=== PATIENT | female | born 1955 | race Caucasian/White ===

== ENCOUNTER 2017-12-07 12:03 | Observation (INO) ==
[2017-12-07] MEDS ORDERED: Sod Chloride 0.9% Inj 1,000 ML IV.SIG ONE (12:13)
--- NOTE | 2017-12-07 12:24 | ED ---
HPI General Chief complaint: Weakness Stated complaint: Weakness Time Seen by Provider: 12/07/17 12:04 Source: patient Mode of arrival: EMS Limitations: no limitations History of Present Illness HPI Narrative: The patient is a 62-year-old female who presents to the emergency department via EMS for generalized weakness. The patient states that she developed some generalized weakness 2 weeks ago which is progressive. The patient then developed diarrhea 2 days ago which she describes as loose, watery, brown, without any visible blood. She also complains of some generalized weakness with diffuse body aches. The patient states she fell earlier today on her tailbone, has pain over the sacral coccyx area. The patient does admit to tobacco use and daily alcohol use, last cigarette was just prior to arrival and last use of alcohol was this morning. [facility]. The patient states she lives alone at home. The patient is unsure whether she struck her head when she fell earlier today, denies any significant headache. She denies any neck pain, chest pain, or abdominal pain. Symptoms are moderate and progressive. MD Complaint: generalized weakness Onset (ago): day(s) Duration: progressively worsening Location: generalized Migration: none Severity: moderate Severity scale (1-10): 4 Quality: aching Relieving factors: none Exacerbating factors: none Context: trauma/injury Related Data Home Medications Medication Instructions Recorded Confirmed No Known Home Medications 12/07/17 12/07/17 Allergies Allergy/AdvReac Type Severity Reaction Status Date / Time No Known Allergies Allergy Unverified 12/07/17 12:13 Review of Systems Except as stated in HPI: all other systems reviewed are negative Constitutional Reports fatigue, Denies fever(s), Denies headache(s), Reports poor appetite and Reports weakness ENT Denies headache(s) and Denies neck pain Cardiovascular Denies chest pain and Denies dyspnea Respiratory Denies dyspnea Gastrointestinal Denies abdominal pain, Reports diarrhea, Denies nausea and Denies vomiting Genitourinary Reports urinary incontinence Musculoskeletal Reports back pain and Reports muscle weakness [facility] Medical History Medical History H/O: hysterectomy (Acute) Patient denies medical problems (Acute) Social History Social History Substance History: Active Abuse Second Hand Smoke Exposure: No Smoking Status: Current every day smoker Tobacco Type: Cigarettes How Often Do You Have a Drink Containing Alcohol: 4 or more times a week Recent Travel in [facility] within the Last 8 Weeks: No Recent Out of Country Travel within the Last 8 Weeks: No Exam Narrative Exam Narrative: GENERAL: Awake, alert, pleasant 62-year-old female who appears her stated age and is in no acute respiratory distress. Disheveled appearance cachectic appearance. SKIN: Focused skin assessment warm/dry. HEAD: Atraumatic. Normocephalic. EYES: No injection or drainage. ENT: No nasal bleeding or discharge. Upper dentures in place. Dry mucous membranes. NECK: Trachea midline. No JVD. CARDIOVASCULAR: Regular, tachycardic with a heart rate of 105. RESPIRATORY: No accessory muscle use. Clear to auscultation. Breath sounds equal bilaterally. GASTROINTESTINAL: Abdomen soft, non-tender, nondistended. Hepatic and splenic margins not palpable. MUSCULOSKELETAL: Bilateral lower extremity pitting edema. Back: No tenderness of the thoracic or lumbar vertebrae. Mild tenderness of the sacral coccyx area midline. NEUROLOGICAL: Awake and alert. No obvious cranial nerve deficits. Motor grossly within normal limits. Normal speech. PSYCHIATRIC: Appropriate mood and affect; insight and judgment normal. Course Initial Documented Vital Signs Temperature 98.1 F 12/07/17 12:13 Pulse Rate 106 H 12/07/17 12:13 Respiratory Rate 16 12/07/17 12:13 Blood Pressure 143/85 H 12/07/17 12:13 Pulse Oximetry 94 L 12/07/17 12:13 Last Documented Vital Signs Temperature 98.1 F 12/07/17 12:13 Pulse Rate 106 H 12/07/17 12:13 Respiratory Rate 16 12/07/17 12:13 Blood Pressure 143/85 H 12/07/17 12:13 Pulse Oximetry 94 L 12/07/17 12:13 Medical Decision Making [facility] Narrative Medical decision making narrative: IV was established, labs are drawn and sent, and the patient was placed on cardiac telemetry monitoring and continuous pulse oximetry monitoring. EKG was ordered and interpreted. Chest x-ray was obtained. Pelvis and sacral x-rays were obtained. The patient was administered IV fluids. Chest x-ray reveals a small left pleural effusion. TSH was mildly elevated, therefore, free T4 and free T3 were sent to lab, they were normal. Potassium is mildly low at 3.3, this was replaced orally. The patient's alcohol level was 10. CT the brain reveals chronic changes, no evidence of subdural hemorrhage the patient was covered in stool, was cleaned in the emergency department. The patient is unable to ambulate, normal amylase with a walker, but has had decreased ability to perform activities of daily living including showering and getting to the kitchen, the patient will be admitted, will need PT, OT, and case management consultation. Differential Diagnosis Differential Diagnosis: Differential diagnosis includes hyponatremia, dehydration, acute kidney injury, hypomagnesemia, hypokalemia, subdural hemorrhage, alcohol abuse, rhabdomyolysis, deconditioning. Lab Data Lab results reviewed: Yes I reviewed the patient's lab results. Lab results narrative: TSH was slightly elevated, free T4 and free T3 were negative. Alcohol level was minimally elevated at 10. Result diagrams: 12/07/17 12:30 12/07/17 12:30 Lab Results 12/07/17 12/07/17 12/07/17 Range/Units 12:30 12:30 12:30 WBC 7.7 (4.0-11.0) th/mm3 RBC 3.27 L (4.00-5.30) mil/mm3 Hgb 12.3 (11.6-15.3) gm/dL Hct 36.1 (35.0-46.0) % MCV 110.4 H (80.0-100.0) fL MCH 37.5 H (27.0-34.0) pg MCHC 34.0 (32.0-36.0) % RDW 15.2 (11.6-17.2) % Plt Count 259 (150-450) th/mm3 MPV 9.5 (7.0-11.0) fL Neut % (Auto) 65.8 (16.0-70.0) % Lymph % (Auto) 19.0 (9.0-44.0) % [place] % (Auto) 13.1 H (0.0-8.0) % Eos % (Auto) 1.2 (0.0-4.0) % Baso % (Auto) 0.9 (0.0-2.0) % Neut # (Auto) 5.1 (1.8-7.7) th/mm3 Lymph # (Auto) 1.5 (1.0-4.8) th/mm3 [place] # (Auto) 1.0 H (0.0-0.9) th/mm3 Eos # (Auto) 0.1 (0.0-0.4) th/mm3 Baso # (Auto) 0.1 (0.0-0.2) th/mm3 WBC Differential . Differential Comment Auto diff final Sodium 135 L Cancelled (136-145) meq/L Potassium 3.3 L Cancelled (3.5-5.1) meq/L Chloride 102 Cancelled (98-107) meq/L Carbon Dioxide 20.6 L Cancelled (21.0-32.0) meq/L Anion Gap 12 Cancelled (5-15) meq/L BUN 4 L Cancelled (7-18) mg/dL Creatinine 0.44 L Cancelled (0.50-1.00) mg/dL Estimated GFR Greater than 89 Cancelled (>89) mL/min Random Glucose 90 Cancelled (74-106) mg/dL Calcium 7.5 L Cancelled (8.5-10.1) mg/dL Prot Corrected Calcium Cancelled Magnesium 1.6 (1.5-2.5) mg/dL Total Bilirubin 0.3 Cancelled (0.2-1.0) mg/dL AST 26 Cancelled (15-37) U/L ALT 14 Cancelled (10-53) U/L Alkaline Phosphatase 109 Cancelled (45-117) U/L Total Creatine Kinase 43 (26-192) U/L Troponin I Less than 0.02 L Cancelled (0.02-0.05) ng/mL Total Protein 5.8 L Cancelled (6.4-8.2) g/dL Albumin 2.2 L Cancelled (3.4-5.0) g/dL TSH 5.560 H (0.358-3.740) uIU/mL Free T4 (0.76-1.46) ng/dL Free T3 (2.18-3.98) pg/mL Urine Color (Yellw/Straw) Urine Clarity (Clear) Urine pH (5.0-8.5) Ur Specific [place] (1.002-1.035) Urine Protein (Neg-Trace) mg/dL Urine Glucose (UA) (Negative) mg/dL Urine Ketones (Negative) mg/dL Urine Occult Blood (Negative) Urine Nitrate (Negative) Urine Bilirubin (Negative) Urine Urobilinogen (Less than 2) mg/dL Ur Leukocyte Esterase (Negative) Urine RBC (0-3) /hpf Urine WBC (0-5) /hpf Ur Squamous Epith Cells (0-5) /hpf Micro UA Comment Urine Culture Comments Serum Alcohol 10 H (0-5) mg/dL 12/07/17 12/07/17 12/07/17 Range/Units 12:30 12:30 12:35 WBC (4.0-11.0) th/mm3 RBC (4.00-5.30) mil/mm3 Hgb (11.6-15.3) gm/dL Hct (35.0-46.0) % MCV (80.0-100.0) fL MCH (27.0-34.0) pg MCHC (32.0-36.0) % RDW (11.6-17.2) % Plt Count (150-450) th/mm3 MPV (7.0-11.0) fL Neut % (Auto) (16.0-70.0) % Lymph % (Auto) (9.0-44.0) % [place] % (Auto) (0.0-8.0) % Eos % (Auto) (0.0-4.0) % Baso % (Auto) (0.0-2.0) % Neut # (Auto) (1.8-7.7) th/mm3 Lymph # (Auto) (1.0-4.8) th/mm3 [place] # (Auto) (0.0-0.9) th/mm3 Eos # (Auto) (0.0-0.4) th/mm3 Baso # (Auto) (0.0-0.2) th/mm3 WBC Differential Differential Comment Sodium (136-145) meq/L Potassium (3.5-5.1) meq/L Chloride (98-107) meq/L Carbon Dioxide (21.0-32.0) meq/L Anion Gap (5-15) meq/L BUN (7-18) mg/dL Creatinine (0.50-1.00) mg/dL Estimated GFR (>89) mL/min Random Glucose (74-106) mg/dL Calcium (8.5-10.1) mg/dL Prot Corrected Calcium Magnesium (1.5-2.5) mg/dL Total Bilirubin (0.2-1.0) mg/dL AST (15-37) U/L ALT (10-53) U/L Alkaline Phosphatase (45-117) U/L Total Creatine Kinase (26-192) U/L Troponin I (0.02-0.05) ng/mL Total Protein (6.4-8.2) g/dL Albumin (3.4-5.0) g/dL TSH (0.358-3.740) uIU/mL Free T4 1.11 (0.76-1.46) ng/dL Free T3 2.18 (2.18-3.98) pg/mL Urine Color Yellow (Yellw/Straw) Urine Clarity Hazy H (Clear) Urine pH 6.0 (5.0-8.5) Ur Specific [place] 1.002 (1.002-1.035) Urine Protein Negative (Neg-Trace) mg/dL Urine Glucose (UA) Negative (Negative) mg/dL Urine Ketones Negative (Negative) mg/dL Urine Occult Blood Negative (Negative) Urine Nitrate Negative (Negative) Urine Bilirubin Negative (Negative) Urine Urobilinogen 2.0 H (Less than 2) mg/dL Ur Leukocyte Esterase Small H (Negative) Urine RBC 1 (0-3) /hpf Urine WBC 3 (0-5) /hpf Ur Squamous Epith Cells 1 (0-5) /hpf Micro UA Comment Culture not ind Urine Culture Comments Culture not ind Serum Alcohol Cancelled (0-5) mg/dL Imaging Data Attestation: I personally reviewed and interpreted this imaging study as follows : My impression: Small left pleural effusion. Radiologist's impression: Chest X-Ray 12/07/17 12:13 CONCLUSION: Small left pleural effusion with associated compressive atelectasis and/or consolidation at the left lung base. No fracture is visualized. Head CT 12/07/17 12:13 CONCLUSION: Unremarkable study. Pelvis X-Ray 12/07/17 12:13 CONCLUSION: No acute pelvis abnormality is identified. Sacrum X-Ray 12/07/17 12:13 CONCLUSION: No acute abnormality is identified. ECG Data EKG Prior to Arrival: No Attestation: I personally reviewed and interpreted this ECG as follows: Interpretation: EKG reveals sinus tachycardia with occasional supraventricular premature complex. Q-wave noted in lead V1, V2, V3. Discharge Plan Discharge Disposition Patient Disposition: 30 Still Patient Discharge Condition Condition: Stable Discharge Details Diagnosis: Generalized weakness, Physical deconditioning, Hypokalemia Physicians Team ED Provider: Bryson Vila Primary Care Provider: [facility],Physician 's Rxs /Orders / Referrals /Forms Prescriptions: No Action No Known Home Medications RF: 0 Discharge Interventions Interventions: Vital Signs Last Done: 12/07/17 12:13 Status ED Status: Admitted Observation Patient
[2017-12-07 12:49] LABS: Baso # (Auto) 0.1 th/mm3 (0.0-0.2); Baso % (Auto) 0.9 % (0.0-2.0); Eos # (Auto) 0.1 th/mm3 (0.0-0.4); Eos % (Auto) 1.2 % (0.0-4.0); Hematocrit 36.1 % (35.0-46.0); Hemoglobin 12.3 gm/dL (11.6-15.3); Lymph # (Auto) 1.5 th/mm3 (1.0-4.8); Mean Corpuscular Hemoglobin 37.5 pg (27.0-34.0); Mean Corpuscular Volume 110.4 fL (80.0-100.0); Mean Platelet Volume 9.5 fL (7.0-11.0); Mono % (Auto) 13.1 % (0.0-8.0); Neut # (Auto) 5.1 th/mm3 (1.8-7.7); Neut % (Auto) 65.8 % (16.0-70.0); Platelet Count 259 th/mm3 (150-450); Red Blood Count 3.27 mil/mm3 (4.00-5.30); Red Cell Distribution Width 15.2 % (11.6-17.2); White Blood Count 7.7 th/mm3 (4.0-11.0)
[2017-12-07 12:57] LABS: Bilirubin,Urine Negative (Negative); Clarity,Urine Hazy (Clear); Color,Urine Yellow (Yellw/Straw); Glucose,Urine (UA) Negative (Negative); Leukocyte Esterase,Urine Small (Negative); Nitrite,Urine Negative (Negative); Specific Gravity,Urine 1.002 (1.002-1.035); Squamous Epithelial Cell,Urine 1 /hpf (0-5)
[2017-12-07 13:11] LABS: Alanine Aminotransferase 14 U/L (10-53); Albumin 2.2 g/dL (3.4-5.0); Alkaline Phosphatase 109 U/L (45-117); Anion Gap 12 meq/L (5-15); Aspartate Aminotransferase 26 U/L (15-37); Blood Urea Nitrogen 4 mg/dL (7-18); Calcium 7.5 mg/dL (8.5-10.1); Carbon Dioxide 20.6 meq/L (21.0-32.0); Chloride 102 meq/L (98-107); Glomerular Filtration Rate Greater Than 89 mL/min (>89); Glucose,Random 90 mg/dL (74-106); Magnesium 1.6 mg/dL (1.5-2.5); Potassium 3.3 meq/L (3.5-5.1); Sodium 135 meq/L (136-145); Total Protein 5.8 g/dL (6.4-8.2)
[2017-12-07 13:13] LABS: Alcohol 10 mg/dL (0-5); Creatine Kinase 43 U/L (26-192)
--- NOTE | 2017-12-07 13:21 | XR ---
EXAM DATE: 12/07/2017 1:00 PM EDT AGE/SEX: 62 years / Female INDICATIONS: Trauma. Fall. CLINICAL DATA: This is the patient's initial encounter. Patient reports that signs and symptoms have been present for 2 days and indicates a pain score of 0/10. MEDICAL/SURGICAL HISTORY: None. None. COMPARISON: No prior exams available for comparison. FINDINGS: Rotated AP view of the chest demonstrates a normal-sized cardiac silhouette. EKG lines overlie the pa tient. A small left pleural-parenchymal opacity is present. No pneumothorax is identified. The bones and soft tissues demonstrate no acute abnormality. CONCLUSION: Small left pleural effusion with associated compressive atelectasis and/or consolidation at the left lung base. No fracture is visualized. Electronically signed by: Jose Chiang MD 12/07/2017 1:20 PM EDT
--- NOTE | 2017-12-07 13:22 | XR ---
EXAM DATE: 12/07/2017 1:03 PM EDT AGE/SEX: 62 years / Female INDICATIONS: Trauma. Fall. Pain when walking. CLINICAL DATA: This is the patient's initial encounter. Patient reports that signs and symptoms have been present for 2 days and indicates a pain score of 7/10. MEDICAL/SURGICAL HISTORY: None. None. COMPARISON: [facility] – [place], PELVIS AP 1V, 12/07/2017. . FINDINGS: AP and lateral views of the sacrum demonstrate no fracture. Sacral arches appear intact. Sacroiliac j oints demonstrate no abnormal widening. Visualized surrounding structures demonstrate no acute findin g. There is severe calcification of the common iliac arteries. CONCLUSION: No acute abnormality is identified. Electronically signed by: Jose Chiang MD 12/07/2017 1:21 PM EDT
--- NOTE | 2017-12-07 13:23 | XR ---
EXAM DATE: 12/07/2017 1:04 PM EDT AGE/SEX: 62 years / Female INDICATIONS: Trauma. Fall. Pain on sacrum. CLINICAL DATA: This is the patient's initial encounter. Patient reports that signs and symptoms have been present for 2 days and indicates a pain score of 7/10. MEDICAL/SURGICAL HISTORY: None. None. [place] [facility] [place] [facility]2017. . FINDINGS: Single AP view of the pelvis demonstrates no fracture or dislocation. Sacroiliac joints demonstrate n o abnormality. The femoral necks are not well visualized secondary to rotation of the femur. There is mild joint space narrowing at the hip joints bilaterally. No soft tissue abnormality or radiopaque f oreign body is seen. CONCLUSION: No acute pelvis abnormality is identified. Electronically signed by: Jose Chiang MD 12/07/2017 1:22 PM EDT
[2017-12-07 14:02] LABS: Free T4 (Free Thyroxine) 1.11 ng/dL (0.76-1.46); Triiodothyronine (T3) Free 2.18 pg/mL (2.18-3.98)
--- NOTE | 2017-12-07 14:29 | CT ---
EXAM DATE: 12/07/2017 1:58 PM EDT AGE/SEX: 62 years / Female INDICATIONS: Generalized weakness. CLINICAL DATA: This is the patient's initial encounter. Patient reports that signs and symptoms have been present for 1 day and indicates a pain score of 0/10. MEDICAL/SURGICAL HISTORY: None. None. RADIATION DOSE: 56.35 CTDI (mGy) COMPARISON: No prior exams available for comparison. TECHNIQUE: CT of the head without contrast. Using automated exposure control and adjustment of the mA and/or kV according to patient size, radiation dose was kept as low as reasonably achievable to ob tain optimal diagnostic quality images. DICOM format image data is available electronically for revi ew and comparison. FINDINGS: There is no evidence for intracranial hemorrhage, mass effect, mass lesions, edema, or extra-axial fl uid collections. The visualized bony structures appear intact. The ventricles are normal size for t he patient's age. There are no signs of acute infarction for technique. CONCLUSION: Unremarkable study. Electronically signed by: Pablo Roldan MD 12/07/2017 2:28 PM EDT
--- NOTE | 2017-12-07 17:16 | P.HPFP ---
History of Present Illness Primary Care Physician: [facility] Chief Complaint: worsening weakness History of Present Illness: Patient is a 62-year-old female past medical history of alcohol abuse who presented to the ED due to severe weakness and deconditioning. Patient reports over the past 2 years she has had generalized weakness worse in her right leg and this has progressively worsened to the point that she is not able to take care of herself at home. At baseline she ambulates with a walker however she stated that her lower extremity weakness has progressed to the point that walker is not effective for her to ambulate anymore. Patient lives alone and has neighbors and daughter that come check in on her from time to time. Of note patient has had episodes of falling at home. Denies any syncope, loss of consciousness, chest pain, shortness of breath, palpitations, recent illnesses, fever, chills, nausea/vomiting, numbness tingling of extremities, or dysuria. She also reports that she began having diarrhea today. Denies any recent antibiotic use. Endorses increased urinary frequency. Patient also has noted decrease appetite eating only one meal per day for the past week. - Diagnosis (1) Physical deconditioning (2) Generalized weakness (3) Hypokalemia (4) History of alcohol abuse (5) Nutrition, metabolism, and development symptoms Review of Systems All other systems reviewed negative except as stated in HPI PMFSH - History History Provided By: Patient - Medical History Medical History: Medical History (Last Updated 12/07/17 @ 12:19 by Yarelis Shah) H/O: hysterectomy Patient denies medical problems - Tobacco History Second Hand Smoke Exposure: No Tobacco Use In Past 30 Days: Yes Smoking Status: Current every day smoker Tobacco Type: Cigarettes - Alcohol History How Often Do You Have a Drink Containing Alcohol: 4 or more times a week - Substance Use History Substance History: Active Abuse - Substance Use Type Alcohol Status: Active Route Used: By Mouth Frequency: daily - Travel History Recent Travel in the [place] Within the Last 8 Weeks: No Recent Travel Out of the Country Within the Last 8 Weeks: No - Immunization History Tetanus Immunization: <5 Years Tetanus Immunization Year if Known: 2016 Hx Influenza Vaccine This Season: No Medications and Allergies Active Medications: Active Medications Sodium Chloride (Ns Flush) 2 ml IV.FLUSH PRN PRN PRN Reason: FLUSH AFTER USING IV ACCESS Last Admin: 12/07/17 13:01 Dose: 2 ml Allergies Allergy/AdvReac Type Severity Reaction Status Date / Time No Known Allergies Allergy Unverified 12/07/17 12:13 Home Medications Medication Instructions Recorded Confirmed Type No Known Home Medications 12/07/17 12/07/17 History Exam Vital signs: Vital Signs 12/07/17 12:13 12/07/17 15:01 Temperature 98.1 F Pulse Rate 106 H 97 H Respiratory Rate 16 20 Blood Pressure 143/85 H 120/87 Pulse Oximetry 94 L 95 Intake & Output 12/06/17 12/07/17 12/07/17 18:59 06:59 18:59 Weight 61.235 kg - Constitutional no acute distress, thin, cachectic, chronically ill appearing, cooperative Comments: Patient appears disheveled, with poor hygiene. - Routine HEENT Exam Head: Present: normocephalic Eye: Present: EOMI, PERRL ENT: Present: mucous membranes moist - Routine Neck Exam Present: supple, full ROM. Absent: JVD - Routine Chest/Breast/Axilla Exam Chest wall: Absent: tenderness - Routine Respiratory Exam Present: CTA bilaterally. Absent: accessory muscle use - Routine Cardiovascular Exam Present: RRR, S1, S2. Absent: murmur, gallop, rubs - Routine Abdominal Exam Present: soft, normoactive bowel sounds. Absent: tenderness, distended, rebound , guarding - Routine Extremities Exam Present: full ROM, pulses intact. Absent: cyanosis, tenderness Comments: Patient with 5 out of 5 strength in all extremities, no calf tenderness bilaterally, well perfused. Feet appear soiled, poor hygiene, toenails significantly dirty and long. - Routine Skin Exam Present: intact - Routine Neurological Exam Present: oriented X3, CN II-XII intact, moving all extremities, normal tone. Absent: sensory deficit, motor deficit Results - Labs Result diagrams: 12/07/17 12:30 12/07/17 12:30 Abnormal lab results 12/07/17 12/07/17 12/07/17 Range/Units 12:30 12:30 12:35 RBC 3.27 L (4.00-5.30) mil/mm3 MCV 110.4 H (80.0-100.0) fL MCH 37.5 H (27.0-34.0) pg [place] % (Auto) 13.1 H (0.0-8.0) % [place] # (Auto) 1.0 H (0.0-0.9) th/mm3 Sodium 135 L (136-145) meq/L Potassium 3.3 L (3.5-5.1) meq/L Carbon Dioxide 20.6 L (21.0-32.0) meq/L BUN 4 L (7-18) mg/dL Creatinine 0.44 L (0.50-1.00) mg/dL Calcium 7.5 L (8.5-10.1) mg/dL Troponin I Less than 0.02 L (0.02-0.05) ng/mL Total Protein 5.8 L (6.4-8.2) g/dL Albumin 2.2 L (3.4-5.0) g/dL TSH 5.560 H (0.358-3.740) uIU/mL Urine Clarity Hazy H (Clear) Urine Urobilinogen 2.0 H (Less than 2) mg/dL Ur Leukocyte Esterase Small H (Negative) Serum Alcohol 10 H (0-5) mg/dL Short CBC 12/07/17 Range/Units 12:30 WBC 7.7 (4.0-11.0) th/mm3 Hgb 12.3 (11.6-15.3) gm/dL Hct 36.1 (35.0-46.0) % Plt Count 259 (150-450) th/mm3 BMP 12/07/17 12/07/17 12:30 12:30 Sodium 135 L Cancelled Potassium 3.3 L Cancelled Chloride 102 Cancelled Carbon Dioxide 20.6 L Cancelled BUN 4 L Cancelled Creatinine 0.44 L Cancelled Calcium 7.5 L Cancelled Cardiac Enzymes 12/07/17 12/07/17 Range/Units 12:30 12:30 Total Creatine Kinase 43 (26-192) U/L Troponin I Less than 0.02 L Cancelled (0.02-0.05) ng/mL Liver Function 12/07/17 12/07/17 Range/Units 12:30 12:30 Total Bilirubin 0.3 Cancelled (0.2-1.0) mg/dL AST 26 Cancelled (15-37) U/L ALT 14 Cancelled (10-53) U/L Alkaline Phosphatase 109 Cancelled (45-117) U/L Albumin 2.2 L Cancelled (3.4-5.0) g/dL Urine 12/07/17 Range/Units 12:35 Urine Color Yellow (Yellw/Straw) Urine Clarity Hazy H (Clear) Urine pH 6.0 (5.0-8.5) Ur Specific [place] 1.002 (1.002-1.035) Urine Protein Negative (Neg-Trace) mg/dL Urine Glucose (UA) Negative (Negative) mg/dL - Imaging Impressions Chest X-Ray 12/07/17 12:13 CONCLUSION: Small left pleural effusion with associated compressive atelectasis and/or consolidation at the left lung base. No fracture is visualized. Head CT 12/07/17 12:13 CONCLUSION: Unremarkable study. Pelvis X-Ray 12/07/17 12:13 CONCLUSION: No acute pelvis abnormality is identified. Sacrum X-Ray 12/07/17 12:13 CONCLUSION: No acute abnormality is identified. Caprini VTE Risk Assessment Caprini VTE Risk Assessment: Moderate/High Risk (score >= 2) Caprini Risk Assessment Model: Point Value = 1 Point Value = 2 Point Value = 3 Point Value = 5 Age 41-60 Minor surgery BMI > 25 kg/m2 Swollen legs Varicose veins or History of unexplained or recurrent spontaneous Oral contraceptives or hormone replacement Sepsis (< 1 month) Serious lung disease, including pneumonia (< 1 month) Abnormal pulmonary function Acute myocardial infarction Congestive heart failure (< 1 month) History of inflammatory bowel disease Medical patient at bed rest Age 61-74 Arthroscopic surgery Major open surgery (> 45 min) Laparoscopic surgery (> 45 min) Malignancy Confined to bed (> 72 hours) Immobilizing plaster cast Central venous access Age >= 75 History of VTE Family history of VTE Factor V Leiden Prothrombin [id number] Lupus anticoagulant Anticardiolipin antibodies Elevated serum homocysteine Heparin-induced thrombocytopenia Other congenital or acquired thrombophilia Stroke (< 1 month) Elective arthroplasty Hip, pelvis, or leg fracture Acute spinal cord injury (< 1 month) Prophylaxis Regimen: Total Risk Factor Score Risk Level Prophylaxis Regimen 0-1 Low Early ambulation 2 Moderate Order ONE of the following: *Sequential Compression Device (SCD) *Heparin 5000 units SQ BID 3-4 Higher Order ONE of the following medications: *Heparin 5000 units SQ TID *Enoxaparin/Lovenox 40 mg SQ daily (WT < 150 kg, CrCl > 30 mL/min) *Enoxaparin/Lovenox 30 mg SQ daily (WT < 150 kg, CrCl > 10-29 mL/min) *Enoxaparin/Lovenox 30 mg SQ BID (WT < 150 kg, CrCl > 30 mL/min) AND/OR *Sequential Compression Device (SCD) 5 or more Highest Order ONE of the following medications: *Heparin 5000 units SQ TID (Preferred with Epidurals) *Enoxaparin/Lovenox 40 mg SQ daily (WT < 150 kg, CrCl > 30 mL/min) *Enoxaparin/Lovenox 30 mg SQ daily (WT < 150 kg, CrCl > 10-29 mL/min) *Enoxaparin/Lovenox 30 mg SQ BID (WT < 150 kg, CrCl > 30 mL/min) AND *Sequential Compression Device (SCD) Assessment and Plan - Assessment (1) Physical deconditioning Code(s): R53.81 - Other malaise Status: Acute Plan: Patient with 2 year history of progressive deconditioning. Patient lives alone , with multiple histories of falls and weakness has progressed to inability to care for herself. Vital signs within normal limits No leukocytosis UA with small amount of leukocyte esterase, follow-up urine culture EKG: Sinus tachycardia Head CT: Normal Chest x-ray: Small left pleural effusion with associated comprehensive atelectasis and/or consolidation at left lung base no fractures. Continue to monitor clinically patient is afebrile, no cough, no leukocytosis Plan to initiate antibiotic coverage for pneumonia patient develops fever. Pelvic and sacrum x-ray: No acute pelvis abnormality Consult case management, physical therapy and Occupational Therapy Patient is not safe to discharge home need assistance in performing ADLs Plan to discharge to assisted living facility. Discharge plan was discussed with patient and patient agreed and showed understanding. (2) Generalized weakness Code(s): R53.1 - Weakness Status: Acute Plan: See plan above for her physical this conditioning (3) Hypokalemia Code(s): E87.6 - Hypokalemia Status: Acute Plan: Patient found to have hypokalemia with potassium of 3.3 She received potassium supplement in the ED Continue to monitor (4) History of alcohol abuse Code(s): Z87.898 - Personal history of other specified conditions Status: Acute Plan: Patient with history of alcohol use she states she drinks about 2-3 cups of rum and coke or wine per day. Patient placed on CIWA protocol vitamin supplementation (5) Nutrition, metabolism, and development symptoms Code(s): R63.8 - Other symptoms and signs concerning food and fluid intake Status: Acute Plan: Fluids: 100mls/hr Electrolytes: Replete as needed Nutrition: Regular diet DVT prophylaxis Lovenox
[2017-12-07] MEDS ORDERED: Bisacodyl 10 MG Supp RECTAL PRN (17:32)
[2017-12-07] MEDS ORDERED: Senna/Docusate Sodium 8.6/50 MG Tablet PO PRN (17:32)
[2017-12-07] MEDS ORDERED: Acetaminophen 325 MG Tablet PO PRN (17:32)
[2017-12-07] MEDS ORDERED: LORazepam 1 MG Tablet PO PRN (18:58)
[2017-12-07] MEDS ORDERED: Haloperidol Inj 5 MG/ML Ampul IV.PUSH PRN (18:58)
[2017-12-07] MEDS: Sod Chloride 0.9% Inj 1,000 ML IV.CONT SCH (19:04)
[2017-12-07] MEDS: Enoxaparin Inj 30 MG/0.3 ML Syringe SQ SCH (20:49)
[2017-12-07 22:39] LABS: Folate 3.9 ng/mL (3.1-17.5)
[2017-12-08] MEDS: Sod Chloride 0.9% Inj 1,000 ML IV.CONT SCH ×2 (05:15→14:09)
[2017-12-08] MEDS: Multivitamin/Minerals Therapeutic Tablet PO SCH ×2 (07:54→08:36)
[2017-12-08] MEDS: Folic Acid 1 MG Tablet PO SCH ×2 (07:54→08:36)
[2017-12-08 09:01] LABS: Baso % (Auto) 0.9 % (0.0-2.0); Eos # (Auto) 0.1 th/mm3 (0.0-0.4); Eos % (Auto) 1.8 % (0.0-4.0); Hematocrit 33.4 % (35.0-46.0); Hemoglobin 11.2 gm/dL (11.6-15.3); Lymph # (Auto) 1.3 th/mm3 (1.0-4.8); Lymph % (Auto) 24.2 % (9.0-44.0); Mean Corpuscular HGB Conc 33.6 % (32.0-36.0); Mean Corpuscular Hemoglobin 37.3 pg (27.0-34.0); Mean Corpuscular Volume 111.1 fL (80.0-100.0); Mean Platelet Volume 9.4 fL (7.0-11.0); Mono # (Auto) 0.7 th/mm3 (0.0-0.9); Mono % (Auto) 12.8 % (0.0-8.0); Neut # (Auto) 3.2 th/mm3 (1.8-7.7); Neut % (Auto) 60.3 % (16.0-70.0); Platelet Count 238 th/mm3 (150-450); Red Blood Count 3.01 mil/mm3 (4.00-5.30); Red Cell Distribution Width 15.1 % (11.6-17.2); White Blood Count 5.3 th/mm3 (4.0-11.0)
[2017-12-08 09:28] LABS: Anion Gap 9 meq/L (5-15); Blood Urea Nitrogen 3 mg/dL (7-18); Calcium 7.4 mg/dL (8.5-10.1); Carbon Dioxide 24.1 meq/L (21.0-32.0); Chloride 109 meq/L (98-107); Glomerular Filtration Rate Greater Than 89 mL/min (>89); Glucose,Random 105 mg/dL (74-106); Potassium 3.4 meq/L (3.5-5.1); Sodium 142 meq/L (136-145)
[2017-12-08 09:43] LABS: Total Protein 5.2 g/dL (6.4-8.2)
--- NOTE | 2017-12-08 10:39 | P.HPFP ---
History of Present Illness Primary Care Physician: [facility] Chief Complaint: worsening weakness History of Present Illness: Patient is a 62-year-old female past medical history of alcohol abuse who presented to the ED due to severe weakness and deconditioning. Patient reports over the past 2 years she has had generalized weakness worse in her right leg and this has progressively worsened to the point that she is not able to take care of herself at home. At baseline she ambulates with a walker however she stated that her lower extremity weakness has progressed to the point that walker is not effective for her to ambulate anymore. Patient lives alone and has neighbors and daughter that come check in on her from time to time. Of note patient has had episodes of falling at home. Denies any syncope, loss of consciousness, chest pain, shortness of breath, palpitations, recent illnesses, fever, chills, nausea/vomiting, numbness tingling of extremities, or dysuria. She also reports that she began having diarrhea on the day of admission. Denies any recent antibiotic use. Endorses increased urinary frequency. Patient also has noted decrease appetite eating only one meal per day for the past week. She is stable this morning. she denies any numbness, episodes of fluctuating weakness, eye problems, fevers, etc. Evidently she was covered in urine and feces when she was found in her apartment and the "place was a shambles" with rotting food and cockroaches. She has agreed that she needs help and is willing to have placement instead of going back home alone - Diagnosis (1) Physical deconditioning (2) Hypokalemia (3) History of alcohol abuse (4) Nutrition, metabolism, and development symptoms (5) Generalized weakness Review of Systems see the ROS from her admission yesterday PMF - History History Provided By: Patient - Medical History Medical History: Medical History (Last Reviewed 12/08/17 @ 15:15 by Meredith Higgins) H/O: hysterectomy Patient denies medical problems - Tobacco History Second Hand Smoke Exposure: No Tobacco Use In Past 30 Days: Yes Smoking Status: Current every day smoker Tobacco Type: Cigarettes - Alcohol History How Often Do You Have a Drink Containing Alcohol: 4 or more times a week - Substance Use History Substance History: Active Abuse - Substance Use Type Alcohol Status: Active Route Used: By Mouth Frequency: daily - Travel History Recent Travel in the [facility] Within the Last 8 Weeks: No Recent Travel Out of the Country Within the Last 8 Weeks: No - Immunization History Tetanus Immunization: <5 Years Tetanus Immunization Year if Known: 2017 Hx Influenza Vaccine This Season: No Medications and Allergies Active Medications: Active Medications Acetaminophen (Tylenol) 650 mg PO Q4H PRN PRN Reason: Temp > 100.4 Last Admin: 12/08/17 08:36 Dose: 650 mg Al Hydroxide/Mg Hydroxide (Milk Of Magnesia Liq) 30 ml PO Q12H PRN PRN Reason: Mild Constipation Bisacodyl (Dulcolax Supp) 10 mg RECTAL DAILY PRN PRN Reason: SEVERE CONSITIPATION Enoxaparin Sodium (Lovenox Inj) 30 mg SQ Q24H [facility] Last Admin: 12/07/17 20:49 Dose: 30 mg Flumazenil (Romazecon Inj) 0.2 mg IV.PUSH Q1M PRN PRN Reason: OVERSEDATION Folic Acid (Folic Acid) 1 mg PO DAILY [facility] Stop: 12/12/17 18:59 Last Admin: 12/08/17 08:36 Dose: 1 mg Haloperidol Lactate (Haldol Inj) 1 mg IV.PUSH Q15M PRN PRN Reason: for severe agitation Sodium Chloride (Ns Inj) 1,000 mls @ 100 mls/hr IV.CONT .Q10H [facility] Last Admin: 12/08/17 05:15 Dose: 100 mls/hr Lactulose (Lactulose Liq) 30 ml PO DAILY PRN PRN Reason: SEVERE CONSITIPATION Lorazepam (Ativan) 1 mg PO Q4H PRN PRN Reason: for CIWA 8-10 Lorazepam (Ativan) 2 mg PO Q2H PRN PRN Reason: for CIWA 11-14 Lorazepam (Ativan Inj) 2 mg IV.PUSH Q2H PRN PRN Reason: for CIWA 11-14 Lorazepam (Ativan Inj) 2 mg IV.PUSH Q15M PRN PRN Reason: for CIWA > 20 Lorazepam (Ativan Inj) 1 mg IV.PUSH Q4H PRN PRN Reason: for CIWA 8-10 Lorazepam (Ativan Inj) 2 mg IV.PUSH Q1H PRN PRN Reason: for CIWA 15-20 Multivitamins/Minerals (Theragran-M) 1 tab PO DAILY [facility] Stop: 12/12/17 18:59 Last Admin: 12/08/17 08:36 Dose: 1 tab Ondansetron HCl (Zofran Odt) 4 mg PO Q6H PRN PRN Reason: NAUSEA OR VOMITING Senna/Docusate Sodium (Yuridia-Colace) 1 tab PO BID PRN PRN Reason: CONSTIPATION Sennosides (Senokot) 17.2 mg PO Q12H PRN PRN Reason: Moderate Constipation Sodium Chloride (Ns Flush) 2 ml IV.FLUSH PRN PRN PRN Reason: FLUSH AFTER USING IV ACCESS Last Admin: 12/07/17 13:01 Dose: 2 ml Thiamine HCl (Vitamin B1) 100 mg PO DAILY [facility] Last Admin: 12/08/17 08:36 Dose: 100 mg Vitamin D (Vitamin D3) 5,000 unit PO DAILY [facility] Last Admin: 12/08/17 08:36 Dose: 5,000 unit Allergies Allergy/AdvReac Type Severity Reaction Status Date / Time No Known Allergies Allergy Unverified 12/07/17 12:13 Home Medications Medication Instructions Recorded Confirmed Type No Known Home Medications 12/07/17 12/07/17 History Exam Vital signs: Vital Signs 12/07/17 12:13 12/07/17 15:01 12/07/17 18:31 Temperature 98.1 F 98.0 F Pulse Rate 106 H 97 H 88 Respiratory Rate 16 20 18 Blood Pressure 143/85 H 120/87 124/67 Pulse Oximetry 94 L 95 93 L 12/08/17 00:00 12/08/17 01:21 12/08/17 04:00 Temperature 98.9 F 97.4 F L Pulse Rate 82 81 Respiratory Rate 16 14 16 Blood Pressure 106/64 106/66 Pulse Oximetry 94 L 95 12/08/17 07:58 12/08/17 08:00 12/08/17 09:00 Temperature 97.7 F Pulse Rate 85 80 Respiratory Rate 16 Blood Pressure 126/79 Pulse Oximetry 96 96 Intake & Output 12/07/17 12/08/17 12/08/17 18:59 06:59 18:59 Intake Total 1000 / 1000 1000 / 1000 Balance 1000 / 1000 1000 / 1000 Weight 61.235 kg 61.5 kg Intake: IV 1000 / 1000 1000 / 1000 NS Inj 1,000 ML @ 100 mls/hr IV 1000 / 1000 .CONT .Q10H [facility] Rx#:[id number] - Constitutional no acute distress, cachectic, disheveled - Routine HEENT Exam Head: Present: normocephalic, atraumatic. Absent: cushingoid faces, abrasion, laceration, hematoma Eye: Present: EOMI. Absent: conjunctival icterus, scleral injection, periorbital swelling ENT: Present: mucous membranes dry - Routine Neck Exam Present: supple, trachea midline. Absent: trauma, meningismus - Routine Chest/Breast/Axilla Exam Chest wall: Absent: tenderness - Routine Respiratory Exam Present: CTA bilaterally. Absent: accessory muscle use, patient mechanically ventilated, decreased breath sounds, rales, respiratory distress - Routine Cardiovascular Exam Present: RRR. Absent: bradycardia, tachycardia, irregular rhythm, irregularly irregular - Routine Abdominal Exam Present: soft. Absent: tenderness, distended, rebound, guarding - Routine Extremities Exam Present: full ROM. Absent: cyanosis, clubbing, edema, calf tenderness, extremity cold to touch Results - Labs Result diagrams: 12/08/17 08:36 12/08/17 08:36 Abnormal lab results 12/07/17 12/07/17 12/07/17 Range/Units 12:30 12:30 12:35 RBC 3.27 L (4.00-5.30) mil/mm3 Hgb (11.6-15.3) gm/dL Hct (35.0-46.0) % MCV 110.4 H (80.0-100.0) fL MCH 37.5 H (27.0-34.0) pg [place] % (Auto) 13.1 H (0.0-8.0) % [place] # (Auto) 1.0 H (0.0-0.9) th/mm3 Sodium 135 L (136-145) meq/L Potassium 3.3 L (3.5-5.1) meq/L Chloride (98-107) meq/L Carbon Dioxide 20.6 L (21.0-32.0) meq/L BUN 4 L (7-18) mg/dL Creatinine 0.44 L (0.50-1.00) mg/dL Calcium 7.5 L (8.5-10.1) mg/dL Troponin I Less than 0.02 L (0.02-0.05) ng/mL Total Protein 5.8 L (6.4-8.2) g/dL Albumin 2.2 L (3.4-5.0) g/dL Vitamin D 25-Hydroxy (30-100) ng/mL TSH 5.560 H (0.358-3.740) uIU/mL Urine Clarity Hazy H (Clear) Urine Urobilinogen 2.0 H (Less than 2) mg/dL Ur Leukocyte Esterase Small H (Negative) Serum Alcohol 10 H (0-5) mg/dL 12/07/17 12/08/17 12/08/17 Range/Units 21:26 08:36 08:36 RBC 3.01 L (4.00-5.30) mil/mm3 Hgb 11.2 L (11.6-15.3) gm/dL Hct 33.4 L (35.0-46.0) % MCV 111.1 H (80.0-100.0) fL MCH 37.3 H (27.0-34.0) pg [place] % (Auto) 12.8 H (0.0-8.0) % [place] # (Auto) (0.0-0.9) th/mm3 Sodium (136-145) meq/L Potassium 3.4 L (3.5-5.1) meq/L Chloride 109 H (98-107) meq/L Carbon Dioxide (21.0-32.0) meq/L BUN 3 L (7-18) mg/dL Creatinine 0.44 L (0.50-1.00) mg/dL Calcium 7.4 L* (8.5-10.1) mg/dL Troponin I (0.02-0.05) ng/mL Total Protein 5.2 L D (6.4-8.2) g/dL Albumin (3.4-5.0) g/dL Vitamin D 25-Hydroxy 5.5 L (30-100) ng/mL TSH (0.358-3.740) uIU/mL Urine Clarity (Clear) Urine Urobilinogen (Less than 2) mg/dL Ur Leukocyte Esterase (Negative) Serum Alcohol (0-5) mg/dL Short CBC 12/07/17 12/08/17 Range/Units 12:30 08:36 WBC 7.7 5.3 (4.0-11.0) th/mm3 Hgb 12.3 11.2 L (11.6-15.3) gm/dL Hct 36.1 33.4 L (35.0-46.0) % Plt Count 259 238 (150-450) th/mm3 BMP 12/07/17 12/07/17 12/08/17 12:30 12:30 08:36 Sodium 135 L Cancelled 142 Potassium 3.3 L Cancelled 3.4 L Chloride 102 Cancelled 109 H Carbon Dioxide 20.6 L Cancelled 24.1 BUN 4 L Cancelled 3 L Creatinine 0.44 L Cancelled 0.44 L Calcium 7.5 L Cancelled 7.4 L* Cardiac Enzymes 12/07/17 12/07/17 12/07/17 Range/Units 12:30 12:30 21:26 Total Creatine Kinase 43 48 (26-192) U/L Troponin I Less than 0.02 L Cancelled (0.02-0.05) ng/mL Liver Function 12/07/17 12/07/17 Range/Units 12:30 12:30 Total Bilirubin 0.3 Cancelled (0.2-1.0) mg/dL AST 26 Cancelled (15-37) U/L ALT 14 Cancelled (10-53) U/L Alkaline Phosphatase 109 Cancelled (45-117) U/L Albumin 2.2 L Cancelled (3.4-5.0) g/dL Urine 12/07/17 Range/Units 12:35 Urine Color Yellow (Yellw/Straw) Urine Clarity Hazy H (Clear) Urine pH 6.0 (5.0-8.5) Ur Specific [place] 1.002 (1.002-1.035) Urine Protein Negative (Neg-Trace) mg/dL Urine Glucose (UA) Negative (Negative) mg/dL - Imaging Impressions Chest X-Ray 12/07/17 12:13 CONCLUSION: Small left pleural effusion with associated compressive atelectasis and/or consolidation at the left lung base. No fracture is visualized. Head CT 12/07/17 12:13 CONCLUSION: Unremarkable study. Pelvis X-Ray 12/07/17 12:13 CONCLUSION: No acute pelvis abnormality is identified. Sacrum X-Ray 12/07/17 12:13 CONCLUSION: No acute abnormality is identified. Caprini VTE Risk Assessment Caprini VTE Risk Assessment: Moderate/High Risk (score >= 2) Caprini Risk Assessment Model: Point Value = 1 Point Value = 2 Point Value = 3 Point Value = 5 Age 41-60 Minor surgery BMI > 25 kg/m2 Swollen legs Varicose veins or History of unexplained or recurrent spontaneous Oral contraceptives or hormone replacement Sepsis (< 1 month) Serious lung disease, including pneumonia (< 1 month) Abnormal pulmonary function Acute myocardial infarction Congestive heart failure (< 1 month) History of inflammatory bowel disease Medical patient at bed rest Age 61-74 Arthroscopic surgery Major open surgery (> 45 min) Laparoscopic surgery (> 45 min) Malignancy Confined to bed (> 72 hours) Immobilizing plaster cast Central venous access Age >= 75 History of VTE Family history of VTE Factor V Leiden Prothrombin [id number] Lupus anticoagulant Anticardiolipin antibodies Elevated serum homocysteine Heparin-induced thrombocytopenia Other congenital or acquired thrombophilia Stroke (< 1 month) Elective arthroplasty Hip, pelvis, or leg fracture Acute spinal cord injury (< 1 month) Prophylaxis Regimen: Total Risk Factor Score Risk Level Prophylaxis Regimen 0-1 Low Early ambulation 2 Moderate Order ONE of the following: *Sequential Compression Device (SCD) *Heparin 5000 units SQ BID 3-4 Higher Order ONE of the following medications: *Heparin 5000 units SQ TID *Enoxaparin/Lovenox 40 mg SQ daily (WT < 150 kg, CrCl > 30 mL/min) *Enoxaparin/Lovenox 30 mg SQ daily (WT < 150 kg, CrCl > 10-29 mL/min) *Enoxaparin/Lovenox 30 mg SQ BID (WT < 150 kg, CrCl > 30 mL/min) AND/OR *Sequential Compression Device (SCD) 5 or more Highest Order ONE of the following medications: *Heparin 5000 units SQ TID (Preferred with Epidurals) *Enoxaparin/Lovenox 40 mg SQ daily (WT < 150 kg, CrCl > 30 mL/min) *Enoxaparin/Lovenox 30 mg SQ daily (WT < 150 kg, CrCl > 10-29 mL/min) *Enoxaparin/Lovenox 30 mg SQ BID (WT < 150 kg, CrCl > 30 mL/min) AND *Sequential Compression Device (SCD) Assessment and Plan - Assessment (1) Physical deconditioning Code(s): R53.81 - Other malaise Status: Acute Plan: Patient with 2 year history of progressive deconditioning. Patient lives alone , with multiple histories of falls and weakness has progressed to inability to care for herself. Vital signs within normal limits No leukocytosis UA with small amount of leukocyte esterase, follow-up urine culture EKG: Sinus tachycardia Head CT: Normal Chest x-ray: Small left pleural effusion with associated comprehensive atelectasis and/or consolidation at left lung base no fractures. Continue to monitor clinically patient is afebrile, no cough, no leukocytosis Plan to initiate antibiotic coverage for pneumonia if patient develops fever. Pelvic and sacrum x-ray: No acute pelvis abnormality based on history of losing bowel and bladder function will consider imaging of spine. Consult case management, physical therapy and Occupational Therapy Patient is not safe to discharge home need assistance in performing ADLs Plan to discharge to assisted living facility. Discharge plan was discussed with patient and patient agreed and showed understanding. (2) Hypokalemia Code(s): E87.6 - Hypokalemia Status: Acute Plan: Patient found to have hypokalemia with potassium of 3.3 She received potassium supplement in the ED Continue to monitor (3) History of alcohol abuse Code(s): Z87.898 - Personal history of other specified conditions Status: Acute Plan: Patient with history of alcohol use she states she drinks about 2-3 cups of rum and coke or wine per day. Patient placed on CIWA protocol vitamin supplementation (4) Nutrition, metabolism, and development symptoms Code(s): R63.8 - Other symptoms and signs concerning food and fluid intake Status: Acute Plan: Fluids: 100mls/hr Electrolytes: Replete as needed Nutrition: Regular diet DVT prophylaxis Lovenox (5) Generalized weakness Code(s): R53.1 - Weakness Status: Acute Plan: See plan above for her physical this conditioning H&P: Quality - VTE Deep Vein Thrombosis/Pulmonary Embolism Present on Admission: No
--- NOTE | 2017-12-08 16:23 | ECG ---
Date Performed: 12/07/2017 Time Performed: 12:14:40 PTAGE: 62 years EKG: SINUS TACHYCARDIA WITH OCCASIONAL SUPRAVENTRICULAR PREMATURE COMPLEXES ANTEROSEPTAL MYOCARD IAL INFARCTION ABNORMAL ECG NO PREVIOUS TRACING DOCTOR: Tony Champion Interpretating Date/Time 12/08/2017 16:22:36
[2017-12-08] MEDS: Enoxaparin Inj 30 MG/0.3 ML Syringe SQ SCH (22:23)
[2017-12-09] MEDS: Folic Acid 1 MG Tablet PO SCH (08:30)
[2017-12-09] MEDS: Multivitamin/Minerals Therapeutic Tablet PO SCH (08:30)
[2017-12-09] MEDS: Sod Chloride 0.9% Inj 1,000 ML IV.CONT SCH ×3 (08:31→21:28)
--- NOTE | 2017-12-09 10:27 | P.PNFP ---
Subjective Interval history: Patient was seen at bedside this morning. There were no acute events overnight. It was discussed with the patient her past abuse of alcohol patient reported having a few drinks every night for "many years". At time of interview patient was asked if he would be okay to contact her daughter to get a more complete history. The patient agreed that it was okay to speak with her daughter. I tried calling daughter today but could not get an answer. Patient denies any subjective fevers, chills, shortness of breath, chest pain, nausea, or vomiting. All questions were answered to the patient's satisfaction. <Rolly Tinajero - 12/09/17 16:31> Results - Labs Result diagrams: 12/11/17 09:31 12/11/17 09:31 <Kanchan Lewis - 12/13/17 15:04> Physical Exam Vital signs: Vital Signs 12/12/17 15:07 12/12/17 16:30 Temperature 98.5 F Pulse Rate 101 H Respiratory Rate 18 Blood Pressure 108/72 Pulse Oximetry 95 <Kanchan Lewis - 12/13/17 15:04> Vital Signs 12/08/17 11:53 12/08/17 15:47 12/08/17 20:00 Temperature 97.8 F 97.7 F Pulse Rate 78 79 Respiratory Rate 16 16 Blood Pressure 136/78 139/81 Pulse Oximetry 96 93 L 94 L 12/09/17 00:04 12/09/17 04:17 12/09/17 07:26 Temperature 98.0 F 98.2 F 97.9 F Pulse Rate 91 H 90 96 H Respiratory Rate 18 20 18 Blood Pressure 143/86 H 146/98 H 166/94 H Pulse Oximetry 94 L 97 Intake & Output 12/08/17 12/09/17 12/09/17 18:59 06:59 18:59 Intake Total 1979 1000 / 1000 Balance 1979 1000 / 1000 Intake: IV 1000 / 1000 1000 / 1000 NS Inj 1,000 ML @ 100 mls/hr IV 1000 / 1000 1000 / 1000 .CONT .Q10H [facility] Rx#:[id number] Oral 980 / 980 Other: # Voids 4 # Incontinent Voids 1 <Rolly Tinajero 12/09/17 10:27> - Constitutional no acute distress, thin, disheveled, cooperative <Rolly Tinajero 12/09/17 16: 31> - Routine HEENT Exam Head: Present: normocephalic, atraumatic <Rolly Tinajero 12/09/17 16:31> Eye: Present: EOMI <Rolly Tinajero 12/09/17 16:31> ENT: Present: mucous membranes moist <Rolly Tinajero 12/09/17 16:31> - Routine Respiratory Exam Present: CTA bilaterally. Absent: prolonged expiratory phase, rales, respiratory distress, rhonchi, stridor, wheezes, crackles <Rolly Tinajero 16:31> - Routine Cardiovascular Exam Present: RRR, S1, S2. Absent: murmur <Rolly Tinajero 12/09/17 16:31> - Routine Abdominal Exam Present: soft, normoactive bowel sounds. Absent: tenderness, rebound, guarding <Rolly Tinajero 12/09/17 16:31> - Routine Extremities Exam Present: pulses intact. 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 <Rolly Tinajero 12/09/17 16:31> - Routine Neurological Exam Present: alert, oriented X3, CN II-XII intact, moving all extremities, normal speech. Absent: sensory deficit, motor deficit, facial asymmetry <Rolly Tinajero 12/09/17 16:31> - Detailed Neurological Exam: Coma Scale Eye Opening: Spontaneous <Rolly Tinajero 12/09/17 16:31> Verbal Response: Oriented <Rolly Tinajero 12/09/17 16:31> Motor Response: Obey commands <Rolly Tinajero 12/09/17 16:31> Dipti Coma Scale Total: 15 <Rolly Tinajero 12/09/17 16:31> - Routine Psychiatric Exam Present: normal affect, normal thought process, cooperative, good insight, good judgment. Absent: agitated, paranoid <Rolly Tinajero 12/09/17 16:31> Assessment and Plan - Assessment (1) Physical deconditioning Code(s): R53.81 - Other malaise Status: Acute (2) Elevated blood pressure reading Code(s): R03.0 - Elevated blood-pressure reading, without diagnosis of hypertension Status: Acute (3) History of alcohol abuse Code(s): Z87.898 - Personal history of other specified conditions Status: Acute (4) Generalized weakness Code(s): R53.1 - Weakness Status: Acute (5) Nutrition, metabolism, and development symptoms Code(s): R63.8 - Other symptoms and signs concerning food and fluid intake Status: Acute <Kanchan Lewis - 12/13/17 15:04> (1) Physical deconditioning Code(s): R53.81 - Other malaise Status: Acute Plan: Patient with 2 year history of progressive deconditioning. Patient lives alone , with multiple histories of falls and weakness has progressed to inability to care for herself. Vital signs within normal limits No leukocytosis UA with small amount of leukocyte esterase, follow-up urine culture EKG: Sinus tachycardia Head CT: Normal Chest x-ray: Small left pleural effusion with associated comprehensive atelectasis and/or consolidation at left lung base no fractures. Continue to monitor clinically patient is afebrile, no cough, no leukocytosis Plan to initiate antibiotic coverage for pneumonia if patient develops fever. Pelvic and sacrum x-ray: No acute pelvis abnormality based on history of losing bowel and bladder function and MRI of the lumbar area was ordered that showed mild annular disc bulges at the L2 through 3 and L4 through 5 levels with minimal flattening of the anterior thecal sac and no focal protrusions. Mild degenerative changes involving the lower facet joints. Consult case management, physical therapy and Occupational Therapy Patient is not safe to discharge home need assistance in performing ADLs Plan to discharge to assisted living facility. Discharge plan was discussed with patient and patient agreed and showed understanding. (2) Hypokalemia Code(s): E87.6 - Hypokalemia Status: Acute Plan: Patient found to have hypokalemia with potassium of 3.3 on December 07, now 3.4. She received potassium supplement in the ED Continue to monitor and replete as necessary (3) History of alcohol abuse Code(s): Z87.898 - Personal history of other specified conditions Status: Acute Plan: Patient with history of alcohol use she states she drinks about 2-3 cups of rum and coke or wine per day. CIWA score 0 today. Patient placed on CIWA protocol vitamin supplementation (4) Nutrition, metabolism, and development symptoms Code(s): R63.8 - Other symptoms and signs concerning food and fluid intake Status: Acute Plan: Fluids: 100mls/hr Electrolytes: Replete as needed Nutrition: Regular diet DVT prophylaxis Lovenox (5) Generalized weakness Code(s): R53.1 - Weakness Status: Acute Plan: See plan above for her physical this conditioning <Rolly Tinajero - 12/09/17 16:17> - Attending Attestation The exam, history, and the medical decision-making described in the above note were completed with the assistance of the resident physician. I reviewed and agree with the findings presented. I attest that I had a [id number] encounter with the patient on the same day, and personally performed and documented my assessment and findings in the medical record. she will likely take a long time to gain her strength and energy back <Kanchan Lewis - 12/13/17 15:04>
--- NOTE | 2017-12-09 11:21 | MR ---
EXAM DATE: 12/09/2017 10:47 AM EDT AGE/SEX: 62 years / Female INDICATIONS: Inability to ambulate. CLINICAL DATA: This is the patient's initial encounter. Patient reports that signs and symptoms have been present for 2 days and indicates a pain score of 0/10. MEDICAL/SURGICAL HISTORY: . ETOH abuse Hysterectomy. COMPARISON: No prior exams available for comparison. TECHNIQUE: Multiplanar, multisequence MRI of the lumbar spine was performed without contrast. Patie nt was scanned in a sitting position; neutral, flexion, and extension scans were performed in the sa gittal plane. FINDINGS: The study is degraded by mild motion artifact throughout the study. Vertebra: Homogeneous signal. Normal alignment. Discs: There is mild disc desiccation. The disc spaces are fairly well preserved. Conus: Normal level and configuration. T12-L1: The thecal sac has a normal diameter. No evidence of disc bulge or protrusion. The neural foramina are patent bilaterally. L1-L2: The thecal sac has a normal diameter. No evidence of disc bulge or protrusion. The neural foramina are patent bilaterally. L2-L3: There is a mild annular disc bulge with minimal of flattening the anterior thecal sac and no focal protrusion. The neural foramina are patent bilaterally. L3-L4: There is a mild annular disc bulge with no focal protrusion. There is minimal flattening of the anterior thecal sac. The neural foramina are patent bilaterally. There are mild degenerative [place] ge involving the facet joints. L4-L5: There is a mild annular disc bulge with minimal flattening of the anterior thecal sac and no focal protrusion. The neural foramina are patent. There are mild degenerative changes involving the facets. L5-S1: The thecal sac has a normal diameter. No evidence of disc bulge or protrusion. The neural foramina are patent bilaterally. CONCLUSION: 1. Mild annular disc bulges at the L2-3 through L4-5 levels with minimal flattening of the anterior thecal sac and no focal protrusion. 2. Mild degenerative changes involving the lower facet joints. 3. The study is mildly degraded by diffuse motion artifact. Electronically signed by: Javier Lopez MD 12/09/2017 11:19 AM EDT
[2017-12-09] MEDS: Enoxaparin Inj 40 MG/0.4 ML Syringe SQ SCH (11:55)
--- NOTE | 2017-12-09 15:09 | P.DIET ---
Nutritional Evaluation Type of nutrition evaluation: initial Nutrition screening: [facility] [place] (Malnutrition) Subjective Subjective Comments: 100% po intake for recorded meals in EMR. Recent decreased appetite eating only 1-meal per day for the past week. Objective - Diagnosis Deconditioning: generalized weakness; lower extremity weakness - Objective [place] body weight: 56.8 kg % IBW: 108 Body Weight Used for Calculations: Actual (61.5kg used for assessment here) Energy Needs - Lower Range (kCal/kg): 25 Energy Needs - Upper Range (kCal/kg): 30 Lower Limit kCal/kg (kCals): 1,538 Upper Limit kCal/kg (kCals): 1,845 Lower Limit Protein Factor (Grams per Kg): 1.1 Upper Limit Protein Factor (Grams per Kg): 1.4 Lower Protein Needs (Protein): 68 Upper Protein Needs (Protein): 86 Fluid Factor (ml/kg): 30 Estimated Fluid Needs (ml): 1,845 Dietitian Reviewed in Medical Record: Current diet, Curent medications, Intake & Output, Labs, Medical history Diet Order: Regular Oral Diet Intake Amount: Excellent 90%+ Objective Comments: PMH: Alcohol Abuse Albumin 2.2 Meds Include Folic Acid, Theragran M, Thiamine, Vit D3, Haldol Assessment Assessment: Pt is at nutritional risk r/t diagnosis and alcohol abuse. Pt w/Adequate po intake 50% or greater for meals here. Send Ensure w/meals for additional nutrition(= 250 kcal and 9g Protein per serving). Labs reviewed-noted concern for low albumin, however, albumin is no longer an indicator of nutritional status and is a negative-acute phase reactant relative to the presence of inflammation in the body. Dietitian will follow. Recommendations: 1.Send Ensure w/meals for additional nutrition 2. Dietitian will follow Dietitian to Monitor: Lab values, Supplement acceptance, Intake & Output, Weight change, PO Intake, Medical course
[2017-12-10] MEDS: Multivitamin/Minerals Therapeutic Tablet PO SCH (08:09)
[2017-12-10] MEDS: Folic Acid 1 MG Tablet PO SCH (08:10)
[2017-12-10] MEDS: Enoxaparin Inj 40 MG/0.4 ML Syringe SQ SCH (08:10)
[2017-12-10] MEDS: Sod Chloride 0.9% Inj 1,000 ML IV.CONT SCH ×2 (08:10→18:32)
--- NOTE | 2017-12-10 11:21 | P.PNFP ---
Subjective Interval history: Nursing reports that Ms. Summers had visual hallucinations overnight. Ms. Summers does not remember this on exam today. She has no complaints at this time. She has increased activity and been able to get out of bed. She requests that we call her daughter today. <Elizabeth Rizzo - 12/10/17 11:27> Results - Labs Result diagrams: 12/11/17 09:31 12/11/17 09:31 <Kanchan Lewis - 12/13/17 15:07> - Imaging Impressions Lumbar Spine MRI 12/09/17 00:00 CONCLUSION: 1. Mild annular disc bulges at the L2-3 through L4-5 levels with minimal flattening of the anterior thecal sac and no focal protrusion. 2. Mild degenerative changes involving the lower facet joints. 3. The study is mildly degraded by diffuse motion artifact. <Elizabeth Rizzo - 12/10/17 11:21> Physical Exam Vital signs: Vital Signs 12/12/17 15:07 12/12/17 16:30 Temperature 98.5 F Pulse Rate 101 H Respiratory Rate 18 Blood Pressure 108/72 Pulse Oximetry 95 <Kanchan Lewis - 12/13/17 15:07> Vital Signs 12/09/17 11:24 12/09/17 15:09 12/09/17 19:38 Temperature 97.7 F 97.7 F 98.0 F Pulse Rate 81 98 H 96 H Respiratory Rate 18 18 16 Blood Pressure 160/87 H 146/95 H 125/78 Pulse Oximetry 98 98 97 12/09/17 23:03 12/10/17 03:27 12/10/17 08:00 Temperature 98.7 F 98.4 F 98.6 F Pulse Rate 87 110 H 92 H Respiratory Rate 16 16 16 Blood Pressure 165/93 H 101/74 145/75 H Pulse Oximetry 98 96 94 L Intake & Output 12/09/17 12/10/17 12/10/17 18:59 06:59 18:59 Intake Total 1500 / 1500 1000 / 1000 Output Total 400 / 400 Balance 1500 / 1500 600 / 600 Intake: IV 1000 / 1000 1000 / 1000 NS Inj 1,000 ML @ 100 mls/hr IV 1000 / 1000 1000 / 1000 .CONT .Q10H [facility] Rx#:[id number] Oral 500 / 500 Output: Urine 400 / 400 Other: # Voids 2 # Incontinent Voids 2 <Elizabeth Rizzo - 12/10/17 11:21> Narrative: GENERAL: Sitting up in bed, eating SKIN: Warm and dry. HEAD: Normocephalic. EYES: No injection or drainage. NECK: Supple, trachea midline. No JVD or lymphadenopathy. CARDIOVASCULAR: Regular rate and rhythm without murmurs, gallops, or rubs. RESPIRATORY: Breath sounds equal bilaterally. No accessory muscle use. GASTROINTESTINAL: Abdomen soft, non-tender, nondistended. Normoactive bowel sounds MUSCULOSKELETAL: No cyanosis, or edema. Pedal pulses intact BACK: Nontender without obvious deformity. <Elizabeth Rizzo - 12/10/17 11:21> Assessment and Plan - Assessment (1) Physical deconditioning Code(s): R53.81 - Other malaise Status: Acute (2) Elevated blood pressure reading Code(s): R03.0 - Elevated blood-pressure reading, without diagnosis of hypertension Status: Acute (3) History of alcohol abuse Code(s): Z87.898 - Personal history of other specified conditions Status: Acute (4) Generalized weakness Code(s): R53.1 - Weakness Status: Acute (5) Nutrition, metabolism, and development symptoms Code(s): R63.8 - Other symptoms and signs concerning food and fluid intake Status: Acute <Kanchan Lewis - 12/13/17 15:07> (1) Physical deconditioning Code(s): R53.81 - Other malaise Status: Acute Plan: Patient with 2 year history of progressive deconditioning. Patient lives alone , with multiple histories of falls and weakness has progressed to inability to care for herself. -Consult to case management, physical therapy and Occupational Therapy -Patient strength improving -To follow-up with case management to get [facility] assistance. Patient was in under last name of Karson -Plan to discharge to assisted living facility. Pt to be evaluated by [facility] -[id number] to be signed (2) Elevated blood pressure reading (3) Hypokalemia Code(s): E87.6 - Hypokalemia Status: Acute Plan: Patient found to have hypokalemia with potassium of 3.3 on December 07, now 3.4. She received potassium supplement in the ED Continue to monitor and replete as necessary (4) History of alcohol abuse Code(s): Z87.898 - Personal history of other specified conditions Status: Acute Plan: Patient with history of alcohol use she states she drinks about 2-3 cups of rum and coke or wine per day. Hallucinations last night Patient continue on CIWA protocol vitamin supplementation (5) Nutrition, metabolism, and development symptoms Code(s): R63.8 - Other symptoms and signs concerning food and fluid intake Status: Acute Plan: Fluids: 100mls/hr Electrolytes: Replete as needed Nutrition: Regular diet DVT prophylaxis Lovenox (6) Generalized weakness Code(s): R53.1 - Weakness Status: Acute Plan: See plan above for her physical this conditioning <Elizabeth Rizzo - 12/10/17 16:01> - Attending Attestation The exam, history, and the medical decision-making described in the above note were completed with the assistance of the resident physician. I reviewed and agree with the findings presented. I attest that I had a [id number] encounter with the patient on the same day, and personally performed and documented my assessment and findings in the medical record. she has no hallucinations today. with a very long alcohol history, people can get alcohol related dementia, as well as serious weakness and gait problems <Kanchan Lewis - 12/13/17 15:07>
[2017-12-11] MEDS: Sod Chloride 0.9% Inj 1,000 ML IV.CONT SCH ×3 (04:52→23:05)
[2017-12-11] MEDS: Folic Acid 1 MG Tablet PO SCH (08:01)
[2017-12-11] MEDS: Enoxaparin Inj 40 MG/0.4 ML Syringe SQ SCH (08:01)
[2017-12-11] MEDS: Multivitamin/Minerals Therapeutic Tablet PO SCH (08:01)
[2017-12-11] MEDS ORDERED: Labetalol 100 MG Tablet PO SCH (09:00)
[2017-12-11 10:01] LABS: Hematocrit 36.3 % (35.0-46.0); Hemoglobin 12.3 gm/dL (11.6-15.3); Mean Corpuscular HGB Conc 33.8 % (32.0-36.0); Mean Corpuscular Hemoglobin 37.9 pg (27.0-34.0); Mean Corpuscular Volume 112.1 fL (80.0-100.0); Mean Platelet Volume 8.6 fL (7.0-11.0); Platelet Count 351 th/mm3 (150-450); Red Blood Count 3.24 mil/mm3 (4.00-5.30); Red Cell Distribution Width 15.2 % (11.6-17.2); White Blood Count 7.7 th/mm3 (4.0-11.0)
[2017-12-11 10:35] LABS: Anion Gap 6 meq/L (5-15); Blood Urea Nitrogen 6 mg/dL (7-18); Calcium 8.5 mg/dL (8.5-10.1); Carbon Dioxide 29.4 meq/L (21.0-32.0); Chloride 105 meq/L (98-107); Glomerular Filtration Rate Greater Than 89 mL/min (>89); Glucose,Random 95 mg/dL (74-106); Potassium 5.1 meq/L (3.5-5.1); Sodium 140 meq/L (136-145)
--- NOTE | 2017-12-11 11:26 | P.PNFP ---
Subjective Interval history: Ms Summers reports no overnight events. Nursing reports no hallucinations overnight. Ms Summers denies any auditory or visual hallucinations though does state she "only has problems with that one person but we've worked it out and I don't want to talk any further about that". She denies any chest pain, shortness of breath, abdominal pain, dysuria, difficulty with bowel movements. Reports that she is concerned about the healing of an abrasion on her R nelson. <Elizabeth Rizzo - 12/11/17 11:25> Results - Labs Result diagrams: 12/11/17 09:31 12/11/17 09:31 <Paulie Garcia - 12/11/17 16:22> Abnormal lab results 12/11/17 12/11/17 Range/Units 09:31 09:31 RBC 3.24 L (4.00-5.30) mil/mm3 MCV 112.1 H (80.0-100.0) fL MCH 37.9 H (27.0-34.0) pg BUN 6 L (7-18) mg/dL Creatinine 0.39 L (0.50-1.00) mg/dL Short CBC 12/11/17 Range/Units 09:31 WBC 7.7 (4.0-11.0) th/mm3 Hgb 12.3 (11.6-15.3) gm/dL Hct 36.3 (35.0-46.0) % Plt Count 351 D (150-450) th/mm3 BMP 12/11/17 09:31 Sodium 140 Potassium 5.1 Chloride 105 Carbon Dioxide 29.4 BUN 6 L Creatinine 0.39 L Calcium 8.5 <Paulie Garcia - 12/11/17 16:22> Abnormal lab results 12/11/17 12/11/17 Range/Units 09:31 09:31 RBC 3.24 L (4.00-5.30) mil/mm3 MCV 112.1 H (80.0-100.0) fL MCH 37.9 H (27.0-34.0) pg BUN 6 L (7-18) mg/dL Creatinine 0.39 L (0.50-1.00) mg/dL Short CBC 12/11/17 Range/Units 09:31 WBC 7.7 (4.0-11.0) th/mm3 Hgb 12.3 (11.6-15.3) gm/dL Hct 36.3 (35.0-46.0) % Plt Count 351 D (150-450) th/mm3 BMP 12/11/17 09:31 Sodium 140 Potassium 5.1 Chloride 105 Carbon Dioxide 29.4 BUN 6 L Creatinine 0.39 L Calcium 8.5 <MatthiasElizabeth E - 12/11/17 11:25> Physical Exam Vital signs: Vital Signs 12/10/17 20:00 12/11/17 00:00 12/11/17 04:00 Temperature 97.9 F 98.3 F 97.8 F Pulse Rate 93 H 90 91 H Respiratory Rate 16 16 17 Blood Pressure 135/86 165/85 H 171/102 H Pulse Oximetry 100 98 96 12/11/17 08:00 12/11/17 12:00 12/11/17 13:35 Temperature 97.6 F 97.6 F Pulse Rate 100 H 81 Respiratory Rate 18 16 Blood Pressure 120/87 85/57 L 102/59 L Pulse Oximetry 98 96 12/11/17 15:43 Temperature 97.8 F Pulse Rate 99 H Respiratory Rate 16 Blood Pressure 92/61 L Pulse Oximetry 90 L Intake & Output 12/10/17 12/11/17 12/11/17 18:59 06:59 18:59 Intake Total 1999 1000 / 1000 500 / 500 Balance 1999 1000 / 1000 500 / 500 Intake: IV 1000 / 1000 1000 / 1000 NS Inj 1,000 ML @ 100 mls/hr IV 1000 / 1000 1000 / 1000 .CONT .Q10H [facility] Rx#:[id number] Oral 1000 / 1000 500 / 500 <Paulie Garcia - 12/11/17 16:22> Vital Signs 12/10/17 12:00 12/10/17 16:00 12/10/17 20:00 Temperature 98.2 F 98.0 F 97.9 F Pulse Rate 96 H 94 H 93 H Respiratory Rate 16 16 16 Blood Pressure 113/79 164/77 H 135/86 Pulse Oximetry 96 94 L 100 12/11/17 00:00 12/11/17 04:00 12/11/17 08:00 Temperature 98.3 F 97.8 F 97.6 F Pulse Rate 90 91 H 100 H Respiratory Rate 16 17 18 Blood Pressure 165/85 H 171/102 H 120/87 Pulse Oximetry 98 96 98 Intake & Output 12/10/17 12/11/17 12/11/17 18:59 06:59 18:59 Intake Total 1999 1000 / 1000 500 / 500 Balance 1999 1000 / 1000 500 / 500 Intake: IV 1000 / 1000 1000 / 1000 NS Inj 1,000 ML @ 100 mls/hr IV 1000 / 1000 1000 / 1000 .CONT .Q10H [facility] Rx#:[id number] Oral 1000 / 1000 500 / 500 <Elizabeth Rizzo - 12/11/17 11:25> Narrative: GENERAL: Sitting up in bed, no acute distress SKIN: Warm and dry. HEAD: Normocephalic. EYES: No injection or drainage. NECK: Supple, trachea midline. No JVD or lymphadenopathy. CARDIOVASCULAR: Regular rate and rhythm without murmurs, gallops, or rubs. RESPIRATORY: Breath sounds equal bilaterally. No accessory muscle use. Diminished breath sounds at bases, improved with increased patient effort. GASTROINTESTINAL: Abdomen soft, non-tender, nondistended. Normoactive bowel sounds MUSCULOSKELETAL: No cyanosis, or edema. Pedal pulses intact EXTREMITIES: Healing Abrasion on mid R nelson about 3 cm in length with overlying dried blood and clotting. No surrounding erythema or tenderness.a BACK: Nontender, kyphotic. <Elizabeth Rizzo - 12/11/17 11:25> Assessment and Plan - Assessment (1) Physical deconditioning Code(s): R53.81 - Other malaise Status: Acute (2) Elevated blood pressure reading Code(s): R03.0 - Elevated blood-pressure reading, without diagnosis of hypertension Status: Acute (3) Hypokalemia Code(s): E87.6 - Hypokalemia Status: Acute (4) History of alcohol abuse Code(s): Z87.898 - Personal history of other specified conditions Status: Acute (5) Nutrition, metabolism, and development symptoms Code(s): R63.8 - Other symptoms and signs concerning food and fluid intake Status: Acute (6) Generalized weakness Code(s): R53.1 - Weakness Status: Acute <Paulie Garcia - 12/11/17 16:22> (1) Physical deconditioning Code(s): R53.81 - Other malaise Status: Acute Plan: -Consult to case management, physical therapy and Occupational Therapy -Patient strength improving -Incentive spirometry ordered -To follow-up with case management to get VA assistance. Patient was in under last name of Karson -Plan to discharge to assisted living facility. Pt to be evaluated by [facility] -[id number] to be signed Patient with 2 year history of progressive deconditioning. Patient lives alone , with multiple histories of falls and weakness has progressed to inability to care for herself. (2) Elevated blood pressure reading Code(s): R03.0 - Elevated blood-pressure reading, without diagnosis of hypertension Status: Acute Plan: - 171/102 this am with an overnight peak of 165/85 -Clonidine 0.1mg q6hr PRN for systolics>160 placed - Consider starting Labetalol if HTN continues (3) Hypokalemia Code(s): E87.6 - Hypokalemia Status: Acute Plan: Resolved Continue to monitor and replete as necessary (4) History of alcohol abuse Code(s): Z87.898 - Personal history of other specified conditions Status: Acute Plan: No hallucinations reported last night, CIWA score of 0 Questionable hallucinations based on exam today Continue CIWA protocol Vitamin supplementation Patient with history of alcohol use she states she drinks about 2-3 cups of rum and coke or wine per day. (5) Nutrition, metabolism, and development symptoms Code(s): R63.8 - Other symptoms and signs concerning food and fluid intake Status: Acute Plan: Fluids: 100mls/hr Electrolytes: Replete as needed Nutrition: Regular diet DVT prophylaxis Lovenox (6) Generalized weakness Code(s): R53.1 - Weakness Status: Acute Plan: See plan above for her physical this conditioning <Elizabeth Rizzo - 12/11/17 11:13> - Assessment and Plan Discussed Condition With: Pau Garcia and Donya <Elizabeth Rizzo - 12/11/17 11:25> Discharge Planning: Plans for D/c to [place] [facility]. [facility] to evaluate. <Elizabeth Rizzo - 12/11/17 11:25> - Attending Attestation Patient examined during medical rounds and case discussed with resident team I have read the above note and agree with the assessment/plan as discussed with me I was involved in all medical decision making for this patient Paulie Garcia MD <Paulie Garcia - 12/11/17 16:22>
[2017-12-12] MEDS: Folic Acid 1 MG Tablet PO SCH (08:49)
[2017-12-12] MEDS: Multivitamin/Minerals Therapeutic Tablet PO SCH (08:49)
[2017-12-12] MEDS: Enoxaparin Inj 40 MG/0.4 ML Syringe SQ SCH (08:50)
--- NOTE | 2017-12-12 11:09 | P.PNFP ---
Subjective Interval history: Pt seen and examined this morning. No acute events overnight. Wanting to go home this morning and is annoyed with everything being done in the hospital. Denies any fever/chills, nausea/vomiting, chest pain, SOB, abdominal pain, leg pain. <Clayton Wynn - 12/12/17 11:09> Results - Labs Result diagrams: 12/11/17 09:31 12/11/17 09:31 <Paulie Garcia - 12/12/17 15:18> Physical Exam Vital signs: Vital Signs 12/11/17 15:43 12/11/17 20:00 12/12/17 00:00 Temperature 97.8 F 98.2 F 98.1 F Pulse Rate 99 H 96 H 86 Respiratory Rate 16 18 17 Blood Pressure 92/61 L 131/80 126/76 Pulse Oximetry 90 L 98 96 12/12/17 04:00 12/12/17 07:10 12/12/17 11:11 Temperature 98.0 F 98.3 F 98.3 F Pulse Rate 74 87 85 Respiratory Rate 16 14 16 Blood Pressure 124/70 148/85 H 138/89 Pulse Oximetry 96 96 97 12/12/17 15:07 Temperature 98.5 F Pulse Rate 101 H Respiratory Rate 18 Blood Pressure Pulse Oximetry 95 Intake & Output 12/11/17 12/12/17 12/12/17 18:59 06:59 18:59 Intake Total 500 / 500 Balance 500 / 500 Weight 61.5 kg Intake: Oral 500 / 500 Other: Post Void Residual 200 # Voids 1 <Paulie Garcia - 12/12/17 15:18> Vital Signs 12/11/17 12:00 12/11/17 13:35 12/11/17 15:43 Temperature 97.6 F 97.8 F Pulse Rate 81 99 H Respiratory Rate 16 16 Blood Pressure 85/57 L 102/59 L 92/61 L Pulse Oximetry 96 90 L 12/11/17 20:00 12/12/17 00:00 12/12/17 04:00 Temperature 98.2 F 98.1 F 98.0 F Pulse Rate 96 H 86 74 Respiratory Rate 18 17 16 Blood Pressure 131/80 126/76 124/70 Pulse Oximetry 98 96 96 12/12/17 07:10 Temperature 98.3 F Pulse Rate 87 Respiratory Rate 14 Blood Pressure 148/85 H Pulse Oximetry 96 Intake & Output 12/11/17 12/12/17 12/12/17 18:59 06:59 18:59 Intake Total 500 / 500 Balance 500 / 500 Weight 61.5 kg Intake: Oral 500 / 500 Other: Post Void Residual 200 # Voids 1 <Clayton Wynn - 12/12/17 11:09> Narrative: GENERAL: Sitting up in bed, no acute distress SKIN: Warm and dry. CARDIOVASCULAR: Regular rate and rhythm without murmurs, gallops, or rubs. RESPIRATORY: Breath sounds equal bilaterally. No accessory muscle use. Diminished breath sounds at bases GASTROINTESTINAL: Abdomen soft, non-tender, nondistended. MUSCULOSKELETAL: No cyanosis, or edema. Pedal pulses intact EXTREMITIES: Healing Abrasion on mid R nelson about 3 cm in length with overlying dried blood and clotting. No surrounding erythema or tenderness. <Clayton Wynn - 12/12/17 11:09> Assessment and Plan - Assessment (1) Physical deconditioning Code(s): R53.81 - Other malaise Status: Acute (2) Elevated blood pressure reading Code(s): R03.0 - Elevated blood-pressure reading, without diagnosis of hypertension Status: Acute (3) History of alcohol abuse Code(s): Z87.898 - Personal history of other specified conditions Status: Acute (4) Generalized weakness Code(s): R53.1 - Weakness Status: Acute (5) Nutrition, metabolism, and development symptoms Code(s): R63.8 - Other symptoms and signs concerning food and fluid intake Status: Acute <Paulie Garcia - 12/12/17 15:18> (1) Physical deconditioning Code(s): R53.81 - Other malaise Status: Acute Plan: Consult to case management, physical therapy and Occupational Therapy Patient strength improving -Incentive spirometry ordered -To follow-up with case management to get VA assistance. Patient was in under last name of Karson -Plan to discharge to assisted living facility. Pt to be evaluated by [facility] Patient with 2 year history of progressive deconditioning. Patient lives alone , with multiple histories of falls and weakness has progressed to inability to care for herself. (2) Elevated blood pressure reading Code(s): R03.0 - Elevated blood-pressure reading, without diagnosis of hypertension Status: Acute Plan: Blood pressure much improved this morning. -Clonidine 0.1mg q6hr PRN for systolic>160 -Consider starting Labetalol if HTN continues (3) History of alcohol abuse Code(s): Z87.898 - Personal history of other specified conditions Status: Acute Plan: No hallucinations reported last night, CIWA score of 0 Continue CIWA protocol Vitamin supplementation Patient with history of alcohol use she states she drinks about 2-3 cups of rum and coke or wine per day. (4) Generalized weakness Code(s): R53.1 - Weakness Status: Acute Plan: See plan above for her physical this conditioning (5) Nutrition, metabolism, and development symptoms Code(s): R63.8 - Other symptoms and signs concerning food and fluid intake Status: Acute Plan: Fluids: tolerating PO Electrolytes: Replete as needed Nutrition: Regular diet DVT prophylaxis: Lovenox <Clayton Wynn - 12/12/17 11:00> - Attending Attestation Patient examined independently and case discussed with resident physician I have read the above note and agree with the assessment/plan as discussed with me I was involved in all medical decision making for this patient Patient has been approved for admission to [facility], discharge will be placed -She is to work with physical therapy while at [facility] Paulie Garcia MD <Paulie Garcia - 12/12/17 15:18>
--- NOTE | 2017-12-13 11:30 | P.DS ---
Date of admission: 12/07/17 15:41 Primary care physician: [facility] Brief History from admission: Patient is a 62-year-old female past medical history of alcohol abuse who presented to the ED due to severe weakness and deconditioning. Patient reports over the past 2 years she has had generalized weakness worse in her right leg and this has progressively worsened to the point that she is not able to take care of herself at home. At baseline she ambulates with a walker however she stated that her lower extremity weakness has progressed to the point that walker is not effective for her to ambulate anymore. Patient lives alone and has neighbors and daughter that come check in on her from time to time. Of note patient has had episodes of falling at home. Denies any syncope, loss of consciousness, chest pain, shortness of breath, palpitations, recent illnesses, fever, chills, nausea/vomiting, numbness tingling of extremities, or dysuria. She also reports that she began having diarrhea on the day of admission. Denies any recent antibiotic use. Endorses increased urinary frequency. Patient also has noted decrease appetite eating only one meal per day for the past week. She is stable this morning. she denies any numbness, episodes of fluctuating weakness, eye problems, fevers, etc. Evidently she was covered in urine and feces when she was found in her apartment and the "place was a shambles" with rotting food and cockroaches. She has agreed that she needs help and is willing to have placement instead of going back home alone DS: Summary Hospital Course: Patient is a 62-year-old female who presented on 12/08/17 for physical deconditioning. Patient was found to have hypokalemia which was corrected. She was assessed by physical therapy who determined she needed rehabilitation at a [facility] facility. Arrangements were made by case management and patient was discharged to a ch[facility] facility. - Time Spent with Patient Total time spent providing and/or coordinating discharge services: - Quality: VTE Deep Vein Thrombosis/Pulmonary Embolism Present on Admission: No Exam Vital signs: Vital Signs 12/12/17 11:11 12/12/17 15:07 12/12/17 16:30 Temperature 98.3 F 98.5 F Pulse Rate 85 101 H Respiratory Rate 16 18 Blood Pressure 138/89 108/72 Pulse Oximetry 97 95 Results Procedures completed during hospitalization: None - Impressions ITS Impressions Chest X-Ray 12/07/17 12:13 CONCLUSION: Small left pleural effusion with associated compressive atelectasis and/or consolidation at the left lung base. No fracture is visualized. Head CT 12/07/17 12:13 CONCLUSION: Unremarkable study. Pelvis X-Ray 12/07/17 12:13 CONCLUSION: No acute pelvis abnormality is identified. Sacrum X-Ray 12/07/17 12:13 CONCLUSION: No acute abnormality is identified. Lumbar Spine MRI 12/09/17 00:00 CONCLUSION: 1. Mild annular disc bulges at the L2-3 through L4-5 levels with minimal flattening of the anterior thecal sac and no focal protrusion. 2. Mild degenerative changes involving the lower facet joints. 3. The study is mildly degraded by diffuse motion artifact. Discharge Plan - Discharge Disposition Patient Disposition: 03 Discharge to SNF - Discharge Condition Condition: Stable - Discharge Order Discharge Orders: Discharge Order (Routine); Ordered 12/12/17 Ordered By: Javier Naqvi - Discharge Details Anticipated Discharge Date: 12/12/17 - Physicians Team Primary Care Provider: [facility] Attending Provider: Paulie Garcia Other Providers: [employer],[facility]
== END 2017-12-12 18:52 ==
LOC: NEPHCDU 12:03 → NEDA 12:03 → NEPE 12:03 → NEDA 18:02 → NEPHCDU 18:07
PROVIDERS: ADMIT Family Medicine; ATTEND Family Medicine